=== PATIENT | female | born 1935 | race Caucasian/White ===

== ENCOUNTER → 2017-06-04 | Outpatient (CLI) | payer MEDICARE, OTHER ==
[2016-01-09 10:58] VITALS: BP 119/46
[~2017-06-04] MED LIST: AMLO5TAB2 PO; ASPI-482 PO; ASPI325T8 PO; AZEL137S3 NS; CETI10TA16 PO; CHOL200074 PO; CIPR250T30 PO; CLOP75TA PO; CRESTOR5 MG PO; TELM1TAB PO
--- NOTE | 2017-06-04 14:08 | RAD ---
DATE: June 04, 2017 EXAM: DIGITAL SCREEN BILAT W/CAD HISTORY: Routine screening. COMPARISON: May 31, 2016. May 26, 2015. May 06, 2014. TECHNIQUE: 2D digital CC and MLO views of each breast were obtained. This study was interpreted with the benefit of Computerized Aided Detection (CAD). FINDINGS: The breast parenchyma demonstrates scattered fibroglandular densities, category B. There is no worrisome mass or area of architectural distortion. There are scattered benign-appearing calcifications. IMPRESSION: Benign findings BI-RADS CATEGORY: 2 BENIGN FINDING RECOMMENDED FOLLOW-UP: 12M 12 MONTH FOLLOW-UP PQRS compliance statement: Patient information was entered into a reminder system with a target due date for the next mammogram. Mammography is a sensitive method for finding small breast cancers, but it does not detect them all and is not a substitute for careful clinical examination. A negative mammogram does not negate a clinically suspicious finding and should not result in delay in biopsying a clinically suspicious abnormality. "Our facility is accredited by the [employer] Mammography Program."
== END | disposition home or self-care (01) ==
LOC: MAMMO 12:56
PROVIDERS: ATTEND Family Medicine
DX: Z12.31 Encounter for screening mammogram for malignant neoplasm of breast (principal)
CPT/HCPCS: G0202; 77067

== ENCOUNTER → 2017-08-20 | Outpatient (CLI) | payer MEDICARE, OTHER | END | disposition home or self-care (01) | LOC: US 15:35 | DX: M79.605 Pain in left leg (principal); M79.89 Other specified soft tissue disorders | CPT/HCPCS: 93971 ==